=== PATIENT | male | born 1940 | race Caucasian/White ===

== ENCOUNTER 2017-04-30 10:59 | Emergency (ER) | payer MEDICARE, BC ==
[2016-07-10 07:15] VITALS: BMI 36.4
[~2017-04-30 10:59] MED LIST: COREG25 MG PO; GLUCOPHAGE500 MG PO; LOTREL 10/20 CA1 CAP PO; NAPROSYN500 MG PO; OMEPRAZOLE20 M1 PO; PLAVIX75 MG PO; TRIAMTERENE-HCT1 TA1 PO
[2017-04-30 11:39] LABS: BASOPHILS 0.2 % (0-2); EOSINOPHILS 1.6 % (0-7); HEMATOCRIT 40.3 % (42.0-54.0); HEMOGLOBIN 12.7 g/dL (13.5-17.5); IMMATURE GRANULOCYTES 0.2 % (0-5); LYMPHOCYTES 20.7 % (15-50); MCH 25.9 pg (26.0-34.0); MCHC 31.5 g/dL (31.0-37.0); MCV 82.1 fL (80.0-100.0); MEAN PLATELET VOLUME 9.6 fL (7.4-10.4); MONOCYTES 7.9 % (2-11); NEUTROPHILS 69.4 % (40-80); PLATELET COUNT 252 10x3/uL (130-400); RBC 4.91 10x6/uL (4.20-6.10); RDW 18.8 % (11.5-14.5); WBC 8.1 10x3/uL (4.8-10.8)
[2017-04-30 11:56] LABS: APPEARANCE CLEAR (CLEAR); BACTERIA FEW /hpf (NONE SEEN); BILIRUBIN NEGATIVE (NEGATIVE); COLOR YELLOW (YELLOW); EPITHELIAL CELLS RARE /hpf (0-5); GLUCOSE NEGATIVE (NEGATIVE); KETONE NEGATIVE (NEGATIVE); LEUKOCYTE ESTERASE TRACE (NEGATIVE); NITRITE NEGATIVE (NEGATIVE); PROTEIN NEGATIVE (NEGATIVE); SPECIFIC GRAVITY 1.015 (1.005-1.020); UROBILINOGEN NORMAL (NORMAL); WHITE CELLS - URINE OCC /hpf (0-5)
[2017-04-30 12:01] LABS: ALBUMIN 3.9 g/dL (3.4-5.0); ANION GAP 11.4 mmol/L (8-16); BILIRUBIN - TOTAL 0.4 mg/dL (0.2-1.3); CALCIUM 8.7 mg/dL (8.5-10.1); CARBON DIOXIDE 29.7 mmol/L (21.0-32.0); CREATININE - SERUM 1.4 mg/dL (0.6-1.3); POTASSIUM - SERUM 4.1 mmol/L (3.5-5.1); PROTEIN - SERUM 7.3 g/dL (6.4-8.2)
== END 2017-04-30 15:11 | disposition home or self-care (01) ==
LOC: D.ER 10:59
PROVIDERS: Emergency Medicine
DX: R10.9 Unspecified abdominal pain (principal); N17.9 Acute kidney failure, unspecified; I10 Essential (primary) hypertension

== ENCOUNTER → 2018-10-08 17:40 | Outpatient (CLI) | payer MEDICARE, BC ==
[2016-07-10 07:15] VITALS: BMI 36.4
== END | disposition home or self-care (01) ==
LOC: D.LABREF 17:40
DX: M17.11 Unilateral primary osteoarthritis, right knee (principal); Z11.8 Encounter for screening for other infectious and parasitic diseases

== ENCOUNTER 2018-10-25 09:38 | Inpatient (IN) | payer MEDICARE, BC ==
[~2018-10-25] VITALS: Ht 167.6 cm; Wt 99.8 kg
[~2018-10-25 09:38] MED LIST changes: +LOTREL 10-40 M1 EACH PO; -LOTREL 10/20 CA1 CAP PO
[2018-11-18] MEDS ORDERED: MOBIC7.5 MG PO (13:17)
[2018-11-18] MEDS ORDERED: OSTEO BI-FLEX1 EAC1 PO (13:18)
[2018-11-18] MEDS ORDERED: FISH OIL 1,0001 CA1 PO (13:18)
[2018-11-18] MEDS ORDERED: MULTI-DAY VITAM1 TAB PO (13:18)
[2018-11-19 12:11] LABS: BASOPHILS 0.1 % (0-2); EOSINOPHILS 2.9 % (0-7); HEMATOCRIT 42.3 % (42.0-54.0); HEMOGLOBIN 13.8 g/dL (13.5-17.5); IMMATURE GRANULOCYTES 0.1 % (0-5); LYMPHOCYTES 28.1 % (15-50); MCH 29.2 pg (26.0-34.0); MCHC 32.6 g/dL (31.0-37.0); MCV 89.4 fL (80.0-100.0); MEAN PLATELET VOLUME 10.2 fL (7.4-10.4); MONOCYTES 8.3 % (2-11); NEUTROPHILS 60.5 % (40-80); RBC 4.73 10x6/uL (4.20-6.10); RDW 15.7 % (11.5-14.5)
[2018-11-19 12:14] LABS: PLATELET COUNT 197 10x3/uL (130-400)
[2018-11-19 12:19] LABS: ANION GAP 11.7 mmol/L (8-16); CALCIUM 8.6 mg/dL (8.5-10.1); CARBON DIOXIDE 30.6 mmol/L (21.0-32.0); CREATININE - SERUM 1.1 mg/dL (0.6-1.3); POTASSIUM - SERUM 4.3 mmol/L (3.5-5.1)
[2018-11-19 12:20] LABS: APTT 30.4 SECONDS (22.8-39.4); INR 1.07 (0.85-1.17); PROTIME 13.4 SECONDS (11.6-15.0)
[2018-11-19 13:07] LABS: APPEARANCE CLEAR (CLEAR); BACTERIA FEW /hpf (NONE SEEN); BILIRUBIN NEGATIVE (NEGATIVE); COLOR YELLOW (YELLOW); EPITHELIAL CELLS 0-5 /hpf (0-5); GLUCOSE NEGATIVE (NEGATIVE); KETONE NEGATIVE (NEGATIVE); MUCUS <1+ /lpf (NONE SEEN); NITRITE NEGATIVE (NEGATIVE); PROTEIN NEGATIVE (NEGATIVE); SPECIFIC GRAVITY 1.015 (1.005-1.020); UROBILINOGEN NORMAL (NORMAL); WHITE CELLS - URINE 0-5 /hpf (0-5)
[2018-11-25 05:36] VITALS: BP 151/70; BMI 35.6
--- NOTE | 2018-11-25 08:12 | NUR ---
PLASMA BLADE SET 6/8 BOVIE PAD RIGHT FLANK [id number] EXP 03/13/2020
[2018-11-25 10:54] VITALS: BP 131/66
[2018-11-25 12:01] VITALS: BMI 35.6
[2018-11-25 12:45] VITALS: BP 131/66
--- NOTE | 2018-11-25 13:36 | OP ---
PATIENT NAME: BREANN GUTIERREZ MEDICAL RECORD: [id number] :44 LOCATION:D.MS [id number] ADMISSION DATE:11/25/18 SURGEON: WALTER GRANT DO DATE OF OPERATION: 11/25/2018 PROCEDURE PERFORMED: Right total knee arthroplasty. PREOPERATIVE DIAGNOSIS: Right knee osteoarthritis. POSTOPERATIVE DIAGNOSIS: Right knee osteoarthritis. INDICATIONS: Mr. Gutierrez is a 78-year-old male, who was seen by me a few months ago. He has tried all manner of nonoperative management for his osteoarthritis of his right knee. He says it has been affecting his activities of daily living and he was tired of dealing with it and wants something done surgically. He was informed of the risks and benefits of the total knee including infection, bleeding, damage to nerve or vessels, blood clots, and even , need for further surgery, and he signed the consent. SURGEON: Walter Grant DO DESCRIPTION OF PROCEDURE: The patient was taken to the operative suite, laid in supine position, given a gram of vancomycin and 80 mg of gentamicin preoperatively and 1 gram of TXA. The right lower extremity was prepped and draped in sterile fashion. At that time, a time-out was performed. Everyone was in agreement with correct side, site, patient, and procedure. The knee had been marked out with Ioban covering the knee and incision began on the anterior knee and careful dissection was made down to the capsule and a fresh 10 blade was used to do a medial parapatellar capsulotomy to open the capsule. Some of the fat pad was removed at that time and a medial release was done. The patella was then everted and milled down to fit the prosthesis, a thin poly. The knee was then flexed up. The femoral canal was entered with a drill and the distal femur guide was used to cut 11 mm. This was cut off the distal femur and then the proximal tibia was cut as well off the guide and then the knee was brought into extension and any bone or any other osteophytes were removed at that time with the knee in extension with lamina contact assembler. The menisci were removed from the medial and lateral side as well. Once that was completed, the extension block was put in and fit well. The knee was then flexed up and the femur was measured to be a 65. The 65 right porous femur was put in. A trial was put on at that time and the tibial tray was floated in and ranged and marked for rotation. This was removed. The patella was then drilled for the prosthesis. The lug holes were drilled on the femur and the femoral trial was removed. The tibia was then exposed. The 75 cruciate tibia was then punched and drilled and it was thoroughly irrigated. The cement was then applied to the prosthesis, the tibial tray and on the tibia and impacted in place. Excess cement was removed. The femur was then impacted on, press-fit femur and a 12 poly was put in between. The knee was brought to extension. The patella was then put on and held while the cement dried. Excess cement was removed. At that time, the knee was thoroughly irrigated. Any bleeding was coagulated with Aquamantys throughout the procedure and at that time as well. Once the cement had dried, a trial of 14 and 16, the 16 seemed to have a better fit and they had good stability in extension and flexion, medial and lateral, varus and valgus and had good extension. Once this was placed, a 16 E-poly anterior stabilized tibial tray was put in and locked into place. The knee was then thoroughly irrigated. Surgicel beads were placed in the gutters as well as vancomycin powder. The OPERATIVE REPORT [id number] BREANN GUTIERREZ capsule was then closed with #2 Ethibond in a [id number]-hp-svmmd fashion and then this was irrigated and then the skin was closed with 2-0 Vicryl in an inverted interrupted fashion. ZipLine was placed on the knee. Adaptic, 4 x 4s, ABD, Webril and Randolph wrap were then placed on the knee and LESLYE hose stocking up to the knee. The patient was awakened and taken to recovery in stable condition. BLOOD LOSS: Approximately 150 mL. COMPLICATIONS: None. TRANSINT:[id number] Voice Confirmation ID: [id number] DOCUMENT ID: [id number] WALTER GRANT DO at 1336 CC: [id number] DICTATION DATE: 11/25/18939 SPINNING LATHE OPERATOR: 11/25/18 1055 [facility] [address] [place] [address]
--- NOTE | 2018-11-25 13:36 | OP ---
PATIENT NAME: BREANN GUTIERREZ MEDICAL RECORD: [id number] :44 LOCATION:D.[facility] ADMISSION DATE:11/25/18 SURGEON: ANITRA GRANT DO DATE OF OPERATION: 11/25/2018 ADDENDUM Fareed Ball was my business office assistant and he assisted with holding retractors and closing the wounds. This procedure could not have been performed without him. TRANSINT:[id number] Voice Confirmation ID: [id number] DOCUMENT ID: [id number] ANITRA GRANT DO at 1336 CC: [id number] DICTATION DATE: 11/25/18 1110 HVAC PROJECT ENGINEER: 11/25/18 1119 ADM IN [place] [address] [place] [address]
--- NOTE | 2018-11-25 15:57 | MORECARE ---
CASE MANAGEMENT DISCHARGE SUMMARY PATIENT: BREANN GUTIERREZ UNIT: [id number] ADM DATE: 11/25/18 AGE: 78 : 42 SEX: M ROOM/BED: D.2205 AUTHOR: AUGUSTA CASH PHYSICIAN: REFERRING PHYSICIAN: ANITRA GRANT DO DATE OF SERVICE: 11/25/18 Discharge Plan Patient Name: BREANN [facility]UTIERREZ [facility] [facility] 1940 Planned Disposition: Home or Self Care Anticipated Discharge Date: Discharge Date: Expected LOS: Initial Reviewer: [email or web address] Initial Review Date: 11/25/2018 Generated: 11/25/18 4:57 pm Comments DCP- Discharge Planning Updated by [email or web address]: Kate Arroyo on 11/25/18 2:[address] attempted to see the patient, but he had just returned from procedure and asked if I could come back at a later time. CM will try again tomorrow. Patient Name: BREANN GUTIERREZ Page [id number] at 1557 All edits/amendments must be made on the electronic document DICTATION DATE: 11/25/181556 MILLSTONE CLEANER: NATALIO 11/25/181556 RPT#: [id number] DC DATE: STATUS: ADM IN [facility] [address] [place] [address] END OF REPORT
[2018-11-26] VITALS (7 sets, daily range): BP systolic 111–212; BP diastolic 55–81; Ht 167.6 cm; Wt 99.8 kg
[2018-11-26 06:04] LABS: BASOPHILS 0.1 % (0-2); EOSINOPHILS 1.5 % (0-7); HEMOGLOBIN 12.9 g/dL (13.5-17.5); IMMATURE GRANULOCYTES 0.2 % (0-5); LYMPHOCYTES 14.6 % (15-50); MCH 29.4 pg (26.0-34.0); MCHC 33.1 g/dL (31.0-37.0); MCV 88.8 fL (80.0-100.0); MEAN PLATELET VOLUME 10.4 fL (7.4-10.4); NEUTROPHILS 73.6 % (40-80); PLATELET COUNT 197 10x3/uL (130-400); RBC 4.39 10x6/uL (4.20-6.10); RDW 16.1 % (11.5-14.5); WBC 11.4 10x3/uL (4.8-10.8)
[2018-11-26 06:30] LABS: ALBUMIN 3.2 g/dL (3.4-5.0); ALKALINE PHOSPHATASE 83 U/L (46-116); ALT (SGPT) 26 U/L (10-68); BILIRUBIN - TOTAL 0.76 mg/dL (0.2-1.3); CALC OSMOLALITY 276 mosm/kg (275-300); CALCIUM 7.8 mg/dL (8.5-10.1); CARBON DIOXIDE 25.7 mmol/L (21.0-32.0); CHLORIDE - SERUM 102 mmol/L (98-107); CREATININE - SERUM 0.9 mg/dL (0.6-1.3); GLUCOSE 134 mg/dL (74-106); POTASSIUM - SERUM 3.7 mmol/L (3.5-5.1); PROTEIN - SERUM 6.4 g/dL (6.4-8.2); SODIUM 138 mmol/L (136-145); UREA NITROGEN 9 mg/dL (7-18); eGFR NON AFRICAN AMERICAN 87 mL/min (90-120)
[2018-11-26 07:16] LABS: APPEARANCE CLEAR (CLEAR); BILIRUBIN NEGATIVE (NEGATIVE); COLOR YELLOW (YELLOW); GLUCOSE 50 mg/dL (NEGATIVE); KETONE NEGATIVE (NEGATIVE); NITRITE NEGATIVE (NEGATIVE); PROTEIN NEGATIVE (NEGATIVE); UROBILINOGEN NORMAL (NORMAL)
--- NOTE | 2018-11-26 07:42 | NUR ---
PT SITTING UP IN BED. CPM ON. DENIES PAIN. NO S/S OF DTS. NO S/S OF ACUTE DISTRESS. CL IN PLACE.
--- NOTE | 2018-11-26 17:14 | MORECARE ---
CASE MANAGEMENT DISCHARGE SUMMARY PATIENT: BREANN GUTIERREZ UNIT: [id number] ADM DATE: 11/25/18 AGE: 78 : 42 SEX: M ROOM/BED: D.2205 AUTHOR: AUGUSTA CASH PHYSICIAN: REFERRING PHYSICIAN: ANITRA GRANT DO DATE OF SERVICE: 11/26/18 Discharge Plan Patient Name: BREANN GUTIERREZ Facility: [facility]:[place] : 1940 Planned Disposition: Home or Self Care Anticipated Discharge Date: Discharge Date: Expected LOS: Initial Reviewer: [email or web address] Initial Review Date: 11/25/2018 Generated: 11/26/18 6:13 pm Comments DCP- Discharge Planning Updated by [email or web address]: Sara De Los Santos on 11/26/18 4:[address] Called to room by , she would like to know what outpatient PT we are going to use for her . I informed her of the outpatient PY available near [facility] and she would like to use [facility]. I called and was given a number to speak with Kaya tomorrow for their outpatient PT. States they are closed at this time. Will set up tomorrow. CM will continue to follow and assist with discharge planning/needs. [facility] PT - "K[facility]" DCP- Discharge Planning Updated by [email or web address]: Kate Arroyo on 11/25/18 2:[address] attempted to see the patient, but he had just returned from procedure and asked if I could come back at a later time. CM will try again tomorrow. Last DP export: 11/25/18 2:57 pm Patient Name: BREANN GUTIERREZ Page [phone] at 8319 All edits/amendments must be made on the electronic document DICTATION DATE: 11/26/181712 RESEARCH ASSOCIATE PROFESSOR: NATALIO 11/26/181712 RPT#: [id number] DC DATE: STATUS: ADM IN [facility] [address] [place] [address] END OF REPORT
--- NOTE | 2018-11-26 18:30 | NUR ---
PT ON CPM CO OF PAIN. NO S/S OF ACUTE DISTRESS. CL I PLACE.
--- NOTE | 2018-11-26 20:00 | NUR ---
ALERT AND ORIENTIATED RESTING IN BED CPM IN USE, NO APPARENT DISTRESS CALL LIGHT IN REACH, MILAN WRAP DRESSING INTACT TO RIGHT KNEE, NO NEEDS VOICED AT THIS TIME
[2018-11-27 05:03] LABS: BASOPHILS 0.1 % (0-2); EOSINOPHILS 1.4 % (0-7); HEMATOCRIT 35.1 % (42.0-54.0); HEMOGLOBIN 11.7 g/dL (13.5-17.5); IMMATURE GRANULOCYTES 0.3 % (0-5); LYMPHOCYTES 15.4 % (15-50); MCH 29.5 pg (26.0-34.0); MCHC 33.3 g/dL (31.0-37.0); MCV 88.4 fL (80.0-100.0); MEAN PLATELET VOLUME 10.5 fL (7.4-10.4); MONOCYTES 12.9 % (2-11); NEUTROPHILS 69.9 % (40-80); PLATELET COUNT 165 10x3/uL (130-400); RBC 3.97 10x6/uL (4.20-6.10); RDW 15.9 % (11.5-14.5); WBC 10.4 10x3/uL (4.8-10.8)
[2018-11-27 05:26] LABS: ALBUMIN 2.8 g/dL (3.4-5.0); ALKALINE PHOSPHATASE 80 U/L (46-116); CALC OSMOLALITY 271 mosm/kg (275-300); CARBON DIOXIDE 27.8 mmol/L (21.0-32.0); CHLORIDE - SERUM 99 mmol/L (98-107); CREATININE - SERUM 0.9 mg/dL (0.6-1.3); GLUCOSE 138 mg/dL (74-106); POTASSIUM - SERUM 3.5 mmol/L (3.5-5.1); PROTEIN - SERUM 6.4 g/dL (6.4-8.2); SODIUM 136 mmol/L (136-145); UREA NITROGEN 7 mg/dL (7-18); eGFR NON AFRICAN AMERICAN 87 mL/min (90-120)
[2018-11-27 05:27] LABS: ALT (SGPT) 18 U/L (10-68)
--- NOTE | 2018-11-27 07:15 | NUR ---
MORNING ASSESSMENT COMPLETE. SEE ASSESSMENT FLOWSHEET FOR FURTHER DERTAILS. PT LYING IN BED AAO X4 TO PERSON, PLACE, TIME, AND SITUATION. DENIES NEEDS AT THIS TIME. CL IN REACH. SIDE RAILS UP X3 FOR PATIENT SAEFTY. WILL BE DISCHARGING HOME TODAY.
[2018-11-27] MEDS ORDERED: ELIQUIS2.5 MG PO (07:28)
[2018-11-27] MEDS ORDERED: KEFLEX500 MG PO (07:29)
[2018-11-27] MEDS ORDERED: HYDROCODON-ACE1 EAC2 PO (07:29)
--- NOTE | 2018-11-27 09:32 | MORECARE ---
CASE MANAGEMENT DISCHARGE SUMMARY PATIENT: BREANN GUTIERREZ UNIT: [id number] ADM DATE: 11/25/18 AGE: 78 : 42 SEX: M ROOM/BED: D.2205 AUTHOR: SHAILESH,AUGUSTA PHYSICIAN: REFERRING PHYSICIAN: ANITRA GRANT DO DATE OF SERVICE: 11/27/18 Discharge Plan Patient Name: BREANN GUTIERREZ Facility: [facility]:[place] : 1940 Planned Disposition: Home or Self Care Anticipated Discharge Date: Discharge Date: Expected LOS: Initial Reviewer: [email or web address] Initial Review Date: 11/25/2018 Generated: 11/27/18 10:32 am Comments DCP- Discharge Planning Updated by [email or web address]: Kate Arroyo on 11/27/18 8:[address] Patient's OP PT is [facility] for SaturdayNovember 28 @ 8:30 am . I spoke with Jennifer. Faxed order and facesheet over. A copy of the order will also be given to patient in his discharge packet. CM to follow and assist with DC planning as needed DCP- Discharge Planning Updated by [email or web address]: Sara De Los Santos on 11/26/18 4:[address] Called to room by , she would like to know what outpatient PT we are going to use for her . I informed her of the outpatient PY available near [facility] and she would like to use [facility]. I called and was given a number to speak with Kaya tomorrow for their outpatient PT. States they are closed at this time. Will set up tomorrow. CM will continue to follow and assist with discharge planning/needs. [facility] outpatient PT - "Kaya" DCP- Discharge Planning Updated by [email or web address]: Kate Arroyo on 11/25/18 2:[address] attempted to see the patient, but he had just returned from procedure and asked if I could come back at a later time. CM will try again tomorrow. External Providers External Provider: [facility] Next Contact Date: Service Request Date: Service Type: Resolution: Reviewer: Comments: Last DP export: 11/26/18 4:13 pm Patient Name: BREANN GUTIERREZ Page [phone] at 0932 All edits/amendments must be made on the electronic document DICTATION DATE: 11/27/18930 PARI MUTUEL TICKET SELLER: NATALIO 11/27/18930 RPT#: [id number] DC DATE: STATUS: ADM IN [facility] [address] [place] [address] END OF REPORT
[2018-11-27 09:36] VITALS: BP 142/55
--- NOTE | 2018-11-27 09:58 | MORECARE ---
CASE MANAGEMENT DISCHARGE SUMMARY PATIENT: BREANN GUTIERREZ UNIT: [id number] ADM DATE: 11/25/18 AGE: 78 : 42 SEX: M ROOM/BED: D.2205 AUTHOR: SHAILESH,AUGUSTA PHYSICIAN: REFERRING PHYSICIAN: ANITRA GRANT DO DATE OF SERVICE: 11/27/18 Discharge Plan Patient Name: BREANN GUTIERREZ Facility: [facility]:[place] : 1940 Planned Disposition: Home or Self Care Anticipated Discharge Date: Discharge Date: Expected LOS: Initial Reviewer: [email or web address] Initial Review Date: 11/25/2018 Generated: 11/27/18 10:58 am Comments DCP- Discharge Planning Updated by [email or web address]: Kate Arroyo on 11/27/18 8:[address] Patient's OP PT is set up with [facility] for SaturdayNovember 28 @ 8:30 am . I spoke with Jennifer. Faxed order and facesheet over. A copy of the order will also be given to patient in his discharge packet. CM to follow and assist with DC planning as needed DCP- Discharge Planning Updated by [email or web address]: Sara De Los Santos on 11/26/18 4:[address] Called to room by , she would like to know what outpatient PT we are going to use for her . I informed her of the outpatient PY available near [facility] and she would like to use [facility] outpatient PT. I called and was given a number to speak with Kaya tomorrow for their outpatient PT. States they are closed at this time. Will set up tomorrow. CM will continue to follow and assist with discharge planning/needs. [facility] PT - "Kaya" DCP- Discharge Planning Updated by [email or web address]: Kate Arroyo on 11/25/18 2:[address] attempted to see the patient, but he had just returned from procedure and asked if I could come back at a later time. CM will try again tomorrow. DCPIA - Discharge Planning Initial Assessment Updated by [email or web address]: Kate Arroyo on 11/27/18 9:58 am * Is the patient Alert and Oriented? Yes * How many steps to enter\\exit or inside your home? * PCP [facility] * Pharmacy [facility] * Preadmission Environment Home with Family * ADLs Independent * Equipment Bedside Commode Elevated Toliet Seat Rolling Walker Walker * Other Equipment CPM ICE MACHINE * List name and contact numbers for known caregivers / representatives who currently or will assist patient after discharge: CALLI ()[phone] * Verbal permission to speak to the caregivers and representatives has been obtained from the patient. N/A * Community resources currently utilized None * Additional services required to return to the preadmission environment? Yes * Can the patient safely return to the preadmission environment? Yes * Has this patient been hospitalized within the prior 30 days at any hospital? No Last DP export: 11/27/18 8:32 am Patient Name: BREANN GUTIERREZ Page 25553 at 0958 All edits/amendments must be made on the electronic document DICTATION DATE: 11/27/18957 GRANULATOR TENDER: NATALIO 11/27/18957 RPT#: [id number] DC DATE: STATUS: ADM IN [facility] [address] [place] [address] END OF REPORT
--- NOTE | 2018-11-27 10:06 | MORECARE ---
CASE MANAGEMENT DISCHARGE SUMMARY PATIENT: BREANN GUTIERREZ UNIT: [id number] ADM DATE: 11/25/18 AGE: 78 : 42 SEX: M ROOM/BED: D.2205 AUTHOR: AUGUSTA CASH PHYSICIAN: REFERRING PHYSICIAN: ANITRA GRANT DO DATE OF SERVICE: 11/27/18 Discharge Plan Patient Name: BREANN UGTIERREZ Facility: [facility]:[place] : 1940 Planned Disposition: Home or Self Care Anticipated Discharge Date: Discharge Date: Expected LOS: Initial Reviewer: [email or web address] Initial Review Date: 11/25/2018 Generated: 11/27/18 11:06 am Comments DCP- Discharge Planning Updated by [email or web address]: Kate Arroyo on 11/27/18 9:[address] Patient Name: BREANN GUTIERREZ Admission Status: Elective Accout number: [id number] Admission Date: 11-25-2018 : 1940 Admission Diagnosis: Attending: ANITRA GRANT Current LOS: 2 Anticipated DC Date: Planned Disposition: Home or Self Care Primary Insurance: MEDICARE A & B Discharge Planning Comments: CM met with patient to assess discharge planning needs. Patient is independent with his care at home and his will be the one to drive him home. There is one step in his home. He has all DME that was set up by Dr Grant's office. Walker, CPM, BSC, and ICe Machine. OP PT appointment set up> CM will continue to follow and assist with DC planning as needed Director Retirement: Kate Arroyo DCP- Discharge Planning Updated by [email or web address]: Kate Arroyo on 11/27/18 8:[address] Patient's OP PT is set up with [facility] for SaturdayNovember 28 @ 8:30 am . I spoke with Jennifer. Faxed order and facesheet over. A copy of the order will also be given to patient in his discharge packet. CM to follow and assist with DC planning as needed DCP- Discharge Planning Updated by [email or web address]: Sara De Los Santos on 11/26/18 4:[address] Called to room by , she would like to know what outpatient PT we are going to use for her . I informed her of the outpatient PY available near [facility] and she would like to use [facility] outpatient PT. I called and was given a number to speak with Kaya tomorrow for their outpatient PT. States they are closed at this time. Will set up tomorrow. CM will continue to follow and assist with discharge planning/needs. [facility] PT - "Kaya" DCP- Discharge Planning Updated by [email or web address]: Kate Arroyo on 11/25/18 2:[address] attempted to see the patient, but he had just returned from procedure and asked if I could come back at a later time. CM will try again tomorrow. DCPIA - Discharge Planning Initial Assessment Updated by [email or web address]: Kate Arroyo on 11/27/18 9:58 am * Is the patient Alert and Oriented? Yes * How many steps to enter\\exit or inside your home? * PCP CHERRY * Pharmacy [facility] * Preadmission Environment Home with Family * ADLs Independent * Equipment Bedside Commode Elevated Toliet Seat Rolling Walker Walker * Other Equipment CPM ICE MACHINE * List name and contact numbers for known caregivers / representatives who currently or will assist patient after discharge: CALLI ()[phone] * Verbal permission to speak to the caregivers and representatives has been obtained from the patient. N/A * Community resources currently utilized None * Additional services required to return to the preadmission environment? Yes * Can the patient safely return to the preadmission environment? Yes * Has this patient been hospitalized within the prior 30 days at any hospital? No Last DP export: 11/27/18 8:58 am Patient Name: BREANN GUTIERREZ Page [phone] at 1006 All edits/amendments must be made on the electronic document DICTATION DATE: 11/27/[address] AND BUILDING: NATALIO 11/27/18 1005 RPT#: [id number] DC DATE: STATUS: ADM IN [facility] [address] [place] [address] END OF REPORT
== END 2018-11-27 11:55 | disposition home or self-care (01) | DRG 470 ==
LOC: D.SDCHOLD 11-19 10:00 → D.MS 11-25 10:23
PROVIDERS: Emergency Medicine; ADMIT Orthopaedic Surgery; ATTEND Orthopaedic Surgery
PROC: 0SRC0JZ Replacement of Right Knee Joint with Synthetic Substitute, Open Approach (ICD-10-PCS; principal; 2018-11-25 07:30)
DX: M17.11 Unilateral primary osteoarthritis, right knee (principal); E11.9 Type 2 diabetes mellitus without complications; I10 Essential (primary) hypertension; I25.10 Atherosclerotic heart disease of native coronary artery without angina pectoris

== ENCOUNTER 2020-06-14 19:28 | Emergency (ER) | payer MEDICARE, BC ==
[~2020-06-14] VITALS: Ht 167.6 cm; Wt 95.5 kg
[~2020-06-14 19:28] MED LIST changes: +ELIQUIS2.5 MG PO; +FISH OIL 1,0001 CA1 PO; +HYDROCODON-ACE1 EAC2 PO; +KEFLEX500 MG PO; +MOBIC7.5 MG PO; +MULTI-DAY VITAM1 TAB PO; +OSTEO BI-FLEX1 EAC1 PO
[2020-06-14 19:33] VITALS: Ht 167.6 cm; Wt 95.5 kg
[2020-06-14] MEDS ORDERED: PROTONIX40 MG PO (19:35)
[2020-06-14] MEDS ORDERED: BETAPACE 80 MG80 MG PO (19:35)
[2020-06-14] MEDS ORDERED: XARELTO20 MG PO (19:35)
[2020-06-14] MEDS ORDERED: LOTREL 10-40 M1 EACH PO (19:36)
[2020-06-14 20:25] LABS: BASOPHILS 0.2 % (0-2); EOSINOPHILS 2.1 % (0-7); HEMATOCRIT 41.1 % (42.0-54.0); HEMOGLOBIN 13.3 g/dL (13.5-17.5); IMMATURE GRANULOCYTES 0.2 % (0-5); LYMPHOCYTES 27.4 % (15-50); MCH 29.1 pg (26.0-34.0); MCHC 32.4 g/dL (31.0-37.0); MCV 89.9 fL (80.0-100.0); MEAN PLATELET VOLUME 9.9 fL (7.4-10.4); MONOCYTES 9.3 % (2-11); NEUTROPHILS 60.8 % (40-80); RBC 4.57 10x6/uL (4.20-6.10); RDW 16.6 % (11.5-14.5); WBC 8.6 10x3/uL (4.8-10.8)
[2020-06-14 20:31] LABS: ANION GAP 9.8 mmol/L (8-16); CALCIUM 8.5 mg/dL (8.5-10.1); CARBON DIOXIDE 26.9 mmol/L (21.0-32.0); CREATININE - SERUM 1.4 mg/dL (0.6-1.3); POTASSIUM - SERUM 3.7 mmol/L (3.5-5.1)
[2020-06-14 20:32] LABS: APTT 48.3 SECONDS (22.8-39.4); INR 2.32 (0.85-1.17); PROTIME 25.2 SECONDS (11.6-15.0)
[2020-06-14 20:38] LABS: ALBUMIN 3.7 g/dL (3.4-5.0); BILIRUBIN - TOTAL 0.42 mg/dL (0.2-1.3); PROTEIN - SERUM 7.1 g/dL (6.4-8.2)
[2020-06-14 20:43] LABS: PLATELET COUNT 213 10x3/uL (130-400)
[2020-06-14] MEDS ORDERED: ANUSOL-HC 2.5%30 GM RC (22:29)
[2020-06-14 22:32] VITALS: BP 152/80
== END 2020-06-14 22:32 | disposition home or self-care (01) ==
LOC: D.ER 19:28
PROVIDERS: Family Medicine
DX: K64.5 Perianal venous thrombosis (principal); E11.9 Type 2 diabetes mellitus without complications; I10 Essential (primary) hypertension; Z79.84 Long term (current) use of oral hypoglycemic drugs